=== PATIENT | female | born 1950 | race Caucasian/White ===

== ENCOUNTER 2025-09-05 17:35 | Inpatient (IN) ==
--- NOTE | 2025-09-05 17:59 | Emergency Department Note ---
History of Present Illness General Chief complaint: Hip Pain Stated complaint: FALL, R LEG PAIN Time Seen by Provider: 09/05/25 17:46 Source: patient and family Mode of arrival: EMS Limitations: physical limitation History of Present Illness Maximum Pain Intensity: 8 Patient is a 74-year-old female with history of dementia who presents after a ground-level fall today. History is mainly from her . She fell after tripping on a rug. Landed on her right side. No head or neck injury. Unable to bear weight after the fall. Complains of right hip pain. No obvious deformity noted. History is limited secondary to patient's dementia. Home Medications Medication Instructions Recorded Confirmed Type donepezil 10 mg tablet 10 mg PO QAM 09/05/25 09/05/25 History Past Med/Surg History Problem List (Updated 09/05/25 @ 21:01 by Maxim Betancourt MD) Hip Injury (Acute) Social History Smoking Status: Never smoker Preferred Language: [place] Feels Safe at Home: Yes Review of Systems Review of systems negative outside of positive findings mentioned in HPI. Physical Exam Vital Signs Vital Signs - 24 hr 09/05/25 17:45 09/05/25 18:13 09/05/25 18:58 Temperature 36.5 C Temperature Source Oral Pulse Rate 76 63 68 Respiratory Rate 18 23 Respiratory Effort / Characteristics Non-Labored Spontaneous Respiratory Depth Normal Respiratory Pattern Regular Blood Pressure 206/89 H 169/83 H Blood Pressure Mean 128 135 Pulse Oximetry 98 100 Oxygen Delivery Method Room Air Sepsis Recent Fever Within 48 Hours No Sepsis New/Unexplained Change in Mental Status No Sepsis Action Taken by Nursing No Action Required See below Constitutional WD/WN, vitals as above Eyes PERRL, conjunctivae normal, anicteric sclerae ENMT external ear and nose normal, oropharynx normal Respiratory normal respiratory effort, lungs clear to auscultation Cardiovascular RRR, no murmur, no edema Chest (Breasts) Chest: normal inspection of chest Additional Comments: No tenderness to palpation to the ribs or sternum Gastrointestinal (Abdomen) normal bowel sounds, soft, nontender, no hepatosplenomegaly Musculoskeletal tenderness to palpation on the right anterior hip joint, positive logroll test on the right, limited active flexion against gravity secondary to pain, normal examination of the right knee joint, flexion limited secondary to pain, 2+ PT pulses on the right, pelvis is stable Skin no rashes, warm and dry Neurologic Ankle dorsiflexion and plantarflexion is intact, no sensation deficits noted in the lumbosacral distribution of the right lower extremity Medical Decision Making Differential Diagnosis DDx includes but not limited to: Pelvic fracture, femoral neck fracture, hip dislocation, ligamentous injury, tendinopathy, knee injury Medical Records Attestation: I reviewed the patient's medical records. Home Medications Current Medication List: was personally reviewed by me Laboratory Data Attestation: I reviewed the patient's lab results. 09/05/25 18:12 09/05/25 18:12 Lab Results 09/05/25 09/05/25 Range/Units 18:12 19:58 WBC 13.98 H (4.8-10.8) K/ul RBC 4.63 (4.20-5.40) M/uL Hgb 13.3 (12.0-16.0) g/dL Hct 40.7 (37.0-47.0) % MCV 87.9 (80.0-100.0) fL MCH 28.7 (25.0-34.0) pg MCHC 32.7 (32.0-36.0) g/dL RDW Std Deviation 40.2 (36.4-46.3) fL RDW Coeff of Miguel Angel 12.5 (11.5-14.5) % Plt Count 219 (130-400) K/uL MPV 11.1 (9.4-12.4) fL Immature Gran % (Auto) 0.5 % Neut % (Auto) 86.4 % Lymph % (Auto) 7.0 % [place] % (Auto) 5.7 % Eos % (Auto) 0.1 % Baso % (Auto) 0.3 % Neut # (Auto) 12.07 H (1.40-6.50) K/uL Lymph # (Auto) 0.98 L (1.20-3.40) K/uL [place] # (Auto) 0.80 H (0.11-0.59) K/uL Eos # (Auto) 0.02 (0.00-0.50) K/uL Baso # (Auto) 0.04 (0.00-0.20) K/uL Immature Gran # (Auto) 0.07 (0.01-0.20) K/uL PT 10.6 (9.0-12.0) Seconds INR 1.0 (0.9-1.1) APTT 26 (21-31) Seconds PTT Ratio 1.0 Sodium 141 (136-145) mmol/L Potassium 4.1 (3.5-5.1) mmol/L Chloride 105 (98-107) mmol/L Carbon Dioxide 28 (21-32) mmol/L Anion Gap 8 (3-11) BUN 21 (6-23) mg/dl Creatinine 0.67 (0.6-1.2) mg/dl Est Cr Clr Drug Dosing 64.6 ml/min eGFR 92.23 BUN/Creatinine Ratio 31.3 H (10-20) Glucose 110 H (70-99(Fasting)) mg/dl Calcium 9.5 (8.6-10.3) mg/dl Total Bilirubin 0.5 (0.2-1.0) mg/dl AST 17 (13-39) U/L ALT 8 (7-52) U/L Alkaline Phosphatase 64 (34-104) U/L Total Protein 7.4 (6.0-8.3) gm/dl Albumin 4.0 (3.4-5.0) gm/dl Globulin 3.4 (2.5-4.0) gm/dl Albumin/Globulin Ratio 1.2 (0.9-2) Urine Color Yellow Urine Appearance Clear (Clear) Urine pH 8.0 H (4.5-7.5) Ur Specific [place] 1.011 (1.000-1.030) Urine Protein Negative (Negative) Urine Glucose (UA) Negative (Negative) Urine Ketones Negative (Negative) Urine Blood 3+ H (Negative) Urine Nitrite Negative (Negative) Urine Bilirubin Negative (Negative) Urine Urobilinogen Negative (Negative) Ur Leukocyte Esterase Trace H (Negative) Urine WBC (Auto) 0-5 (0-5) /hpf Urine RBC (Auto) >20 H (0-2) /hpf U Hyaline Cast (Auto) 0-2 (0-2) /lpf U Epithel Cells (Auto) 0-2 (0-2) /hpf Urine Bacteria (Auto) None Seen (None Seen) Urine Comment Imaging Data Attestation: I personally reviewed and interpreted this imaging study as follows: Radiologist's Impression: Hip X-Ray 09/05/25 17:53 INDICATION: Trauma TECHNIQUE: 2 views of the right hip were obtained. COMPARISON: None FINDINGS: No displaced acute osseous process is identified. Mild osteoarthritis of the right hip joint. IMPRESSION: No displaced acute osseous process is identified. Electronically signed by Shadi Cardenas 09-05-2025 7:28 PM Knee X-Ray 09/05/25 17:53 INDICATION: Pain TECHNIQUE: 3 views of the right knee were obtained. COMPARISON: None FINDINGS: No displaced acute osseous process is identified. 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 Mild genu valgum. No appreciable joint fluid is seen. IMPRESSION: No displaced acute osseous process is identified. Electronically signed by Shadi Cardenas 09-05-2025 7:[address] 09/05/25 18:40 CT PELVIS: TECHNIQUE: Un-enhanced CT examination of the pelvis was performed. IV CONTRAST: None HISTORY: TRAUMA COMPARISON: None. FINDINGS: URINARY BLADDER: Unremarkable REPRODUCTIVE ORGANS: Unremarkable AORTA and ILIAC ARTERIES: No aneurysmal dilatation of the visualized portion of the aorta or iliac arteries seen. LYMPH NODES: No pelvic lymph adenopathy identified. GASTROINTESTINAL: The visualized bowel is normal in caliber. PERITONEUM: No ascites is seen. No peritoneal masses seen. PELVIC WALL: No hernia is identified OSSEOUS STRUCTURES: No acute or suspicious process identified. IMPRESSION: No acute traumatic fracture is identified. Electronically signed by Shadi Cardenas 09-05-2025 7:28 PM ECG Data Attestation: I personally reviewed and interpreted this ECG as follows: Indication: + other (pre-op ) Rate (beats per minute): 61 Rhythm: + sinus rhythm ECG Intervals/blocks: + Normal QRS, + Normal QT and + Normal OR ECG [place]: + Normal ECG ST segments: + Normal ST segments Comparison ECG Date: no prior available Blood Pressure Blood Pressure Findings: Elevated blood pressure Blood Pressure Disposition: elevated BP felt to be situational MDM Narrative Patient is a 74-year-old female who presents after a fall with right hip pain. No obvious deformity noted. Neurovascular intact on my examination. X-ray of the right hip and knee Negative for negative for bony abnormality. Pelvis CT ordered to rule out occult fracture. No evidence of traumatic injury noted. Attempted to ambulate patient here in the ED however she is unable to ambulate without assistance or bear much weight on the right side. Will admit for PT/OT evaluation and further management of right hip pain after her fall. No head or neck injury reported. No other traumatic injury noted on secondary survey. Lab work reviewed. Mild leukocytosis noted. No obvious source of infection or SIRS criteria met. Could possibly be due to to some mild dehydration as patient's BUN to creatinine ratio was slightly elevated. Greater than 20 RBCs noted on urinalysis. Will need further workup and possible culture for further evaluation. No indication for antibiotics at this time. Will admit to hospitalist service for right hip pain and ambulatory dysfunction. Impression & Plan Hip Injury Discharge Plan Visit Data Chief Complaint: Hip Pain Stated Complaint: FALL, R LEG PAIN ED Provider: Maxim Betancourt Discharge Problem: Hip Injury Patient Disposition: Admitted As Inpatient Condition: Good Forms Stand Alone Forms: [employer] [facility] [place] Prescriptions Prescriptions: No Action donepezil 10 mg tablet 10 mg PO QAM Rx Instructions: with largest meal of the day Referrals Referrals: PCP,NO [Physician] -
[2025-09-05 18:50] LABS: Hematocrit (blood only) 40.7 % (37.0-47.0); Hemoglobin 13.3 g/dL (12.0-16.0); Immature Granulocytes # (auto) 0.07 K/uL (0.01-0.20); Immature Granulocytes % (auto) 0.5 %; Mean Corpuscular Hemoglobin 28.7 pg (25.0-34.0); Mean Corpuscular Volume 87.9 fL (80.0-100.0); Platelet Count 219 K/uL (130-400); RDW Standard Deviation 40.2 fL (36.4-46.3); Red Blood Count 4.63 M/uL (4.20-5.40); White Blood Count 13.98 K/ul (4.8-10.8)
[2025-09-05 19:11] LABS: Alanine Aminotransferase 8.0 U/L (7-52); Albumin Globulin Ratio 1.2 (0.9-2); Albumin Level 4.0 gm/dl (3.4-5.0); Alkaline Phosphatase 64.0 U/L (34-104); Anion Gap 8.0 (3-11); Bilirubin,Total 0.5 mg/dl (0.2-1.0); Blood Urea Nitrogen 21.0 mg/dl (6-23); Calcium 9.5 mg/dl (8.6-10.3); Carbon Dioxide 28.0 mmol/L (21-32); Chloride 105.0 mmol/L (98-107); Creatinine Clr Calc Pharmacy 64.6 ml/min; Globulin 3.4 gm/dl (2.5-4.0); Glucose 110.0 mg/dl (70-99(Fasting)); Potassium 4.1 mmol/L (3.5-5.1); Sodium 141.0 mmol/L (136-145); Total Protein 7.4 gm/dl (6.0-8.3)
[2025-09-05 19:22] LABS: INR 1.0 (0.9-1.1); Partial Thromboplastin Time 26 Seconds (21-31); Prothrombin Time 10.6 Seconds (9.0-12.0)
--- NOTE | 2025-09-05 19:28 | XRay Report ---
INDICATION: Trauma TECHNIQUE: 2 views of the right hip were obtained. COMPARISON: None FINDINGS: No displaced acute osseous process is identified. Mild osteoarthritis of the right hip joint. IMPRESSION: No displaced acute osseous process is identified. Electronically signed by Shadi Cardenas 09-05-2025 7:28 PM
--- NOTE | 2025-09-05 19:28 | CT Scan Report ---
CT PELVIS: TECHNIQUE: Un-enhanced CT examination of the pelvis was performed. IV CONTRAST: None HISTORY: TRAUMA COMPARISON: None. FINDINGS: URINARY BLADDER: Unremarkable REPRODUCTIVE ORGANS: Unremarkable AORTA and ILIAC ARTERIES: No aneurysmal dilatation of the visualized portion of the aorta or iliac arteries seen. LYMPH NODES: No pelvic lymph adenopathy identified. GASTROINTESTINAL: The visualized bowel is normal in caliber. PERITONEUM: No ascites is seen. No peritoneal masses seen. PELVIC WALL: No hernia is identified OSSEOUS STRUCTURES: No acute or suspicious process identified. IMPRESSION: No acute traumatic fracture is identified. Electronically signed by Shadi Cardenas 09-05-2025 7:28 PM
--- NOTE | 2025-09-05 19:28 | XRay Report ---
INDICATION: Pain TECHNIQUE: 3 views of the right knee were obtained. COMPARISON: None FINDINGS: No displaced acute osseous process is identified. 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 Mild genu valgum. No appreciable joint fluid is seen. IMPRESSION: No displaced acute osseous process is identified. Electronically signed by Shadi Cardenas 09-05-2025 7:28 PM
[2025-09-05 20:14] LABS: Appearance Urine Clear (Clear); Bacteria Urine Automated None Seen (None Seen); Cast Urine Automated 0-2 /lpf (0-2); Epithelial Cell Urine Auto 0-2 /hpf (0-2); Glucose Urine UA Negative (Negative); RBC Urine Automated >20 /hpf (0-2); WBC Urine Automated 0-5 /hpf (0-5)
[2025-09-05] MEDS: KETOROLAC TROMETHAMINE 15 MG/ML VIAL IV STA (22:45)
[2025-09-05] MEDS ORDERED: POLYETHYLENE (MIRALAX) 17 GM PACK PO PRN (23:38)
[2025-09-06] MEDS: LACTATED RINGER'S 1,000 ML IV SCH (00:16)
[2025-09-06] MEDS: ACETAMINOPHEN 1,000 MG/100 ML VIAL IV PRN (00:20)
--- NOTE | 2025-09-06 03:00 | History & Physical Report ---
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 Patient seems fell after tripping over a rug. Landed on her right side. Complained of right hip pain and unable to bear weight on the leg. Patient is currently alert and oriented x 2. Could not tell current dates and year. Patient does not remember falling down. Denies any chest pain. Denies any shortness of breath. Denies cough. Denies headache. Denies nausea. Denies abdominal pain. Able to talk to her and daughter. As per she does not use any cane or walker. Appetite is okay. Afebrile. Hemodynamics are okay. In the ER when tried to ambulate she could not put weight on the right leg and we were called for admission. Fall Ambulatory dysfunction Having pain in the right hip region Imaging studies no acute findings Pain control PT OT Mild Alzheimer's dementia On donezepil Will monitor for delirium History of hypertension and hyperlipidemia Currently not on medications as per PCP notes possibly due to weight loss Currently blood pressure running high IV hydralazine as needed Will monitor DVT prophylaxis Lovenox History of Present Illness Chief Complaint: Fall, ambulatory dysfunction Primary Care Provider: Danna Thompson MD 74-year-old female with past medical history significant for hyperlipidemia, hypertension, varicose veins of both lower extremities, 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 Patient seems fell after tripping over a rug. Landed on her right side. Complained of right hip pain and unable to bear weight on the leg. Patient is currently alert and oriented x 2. Could not tell current dates and year. Patient does not remember falling down. Denies any chest pain. Denies any shortness of breath. Denies cough. Denies headache. Denies nausea. Denies abdominal pain. Able to talk to her and daughter. As per she does not use any cane or walker. Appetite is okay. Afebrile. Hemodynamics are okay. In the ER when tried to ambulate she could not put weight on the right leg and we were called for admission. Past med history as mentioned above. Past surgical history. Total abdominal hysterectomy with removal of tubes. Social history. . No smoking. No alcohol use. No drug use. Family history. Father had diabetes. Allergies Allergy/AdvReac Type Severity Reaction Status Date / Time No Known Allergies Allergy Unverified 09/05/25 22:33 Home Medications Medication Instructions Recorded Confirmed Type donepezil 10 mg tablet 10 mg PO QAM 09/05/25 09/05/25 History Past Med/Surg History Problem List (Updated 09/06/25 @ 03:04 by Westley Nick MD) Fall Hip Injury (Acute) Social History Smoking Status: Never smoker Preferred Language: Dutch Communication Ability Comment: unable to assess due to cognative issues Security Investigator Required: No Current Living Situation: Spouse Current Living Situation Comment: unable to assess due to cognative issues Feels Safe at Home: Yes Assistive Devices: Walker Assistive Devices Comment: unable to assess due to cognative issues Review of Systems Review of Systems: Unobtainable due to cognitive status Physical Exam Physical Exam: General- Not in acute distress Head- atraumatic Eyes- PERRL. ENT- oropharynx clear Neck- supple, no JVD. Lungs- clear to auscultation no wheezing or crackles Heart- regular rhythm; no murmur, no gallop. Abdomen- normal bowel sounds, soft, nontender, no distension. Extremities- no pretibial edema, no erythema seen Neuro- alert, oriented x 2; PERRL, no facial palsy; no dysarthria; obeys simple commands, moves extremities Results & Data Results & Data Vital Signs (Past 12 Hours) Vital Signs Temp Pulse Resp BP Pulse Ox O2 Del Method 09/05/25 18:58 68 09/05/25 18:13 63 23 169/83 H 100 09/05/25 17:45 36.5 C 76 18 206/89 H 98 Room Air Diagnostic Findings Laboratory Results WBC 13.98 K/ul (4.8-10.8) H 09/05/25 18:12 RBC 4.63 M/uL (4.20-5.40) 09/05/25 18:12 Hgb 13.3 g/dL (12.0-16.0) 09/05/25 18:12 Hct 40.7 % (37.0-47.0) 09/05/25 18:12 MCV 87.9 fL (80.0-100.0) 09/05/25 18:12 MCH 28.7 pg (25.0-34.0) 09/05/25 18:12 MCHC 32.7 g/dL (32.0-36.0) 09/05/25 18:12 RDW Std Deviation 40.2 fL (36.4-46.3) 09/05/25 18:12 RDW Coeff of Miguel Angel 12.5 % (11.5-14.5) 09/05/25 18:12 Plt Count 219 K/uL (130-400) 09/05/25 18:12 MPV 11.1 fL (9.4-12.4) 09/05/25 18:12 Immature Gran % (Auto) 0.5 % 09/05/25 18:12 Neut % (Auto) 86.4 % 09/05/25 18:12 Lymph % (Auto) 7.0 % 09/05/25 18:12 [place] % (Auto) 5.7 % 09/05/25 18:12 Eos % (Auto) 0.1 % 09/05/25 18:12 Baso % (Auto) 0.3 % 09/05/25 18:12 Neut # (Auto) 12.07 K/uL (1.40-6.50) H 09/05/25 18:12 Lymph # (Auto) 0.98 K/uL (1.20-3.40) L 09/05/25 18:12 [place] # (Auto) 0.80 K/uL (0.11-0.59) H 09/05/25 18:12 Eos # (Auto) 0.02 K/uL (0.00-0.50) 09/05/25 18:12 Baso # (Auto) 0.04 K/uL (0.00-0.20) 09/05/25 18:12 Immature Gran # (Auto) 0.07 K/uL (0.01-0.20) 09/05/25 18:12 PT 10.6 Seconds (9.0-12.0) 09/05/25 18:12 INR 1.0 (0.9-1.1) 09/05/25 18:12 APTT 26 Seconds (21-31) 09/05/25 18:12 PTT Ratio 1.0 09/05/25 18:12 Sodium 141 mmol/L (136-145) 09/05/25 18:12 Potassium 4.1 mmol/L (3.5-5.1) 09/05/25 18:12 Chloride 105 mmol/L (98-107) 09/05/25 18:12 Carbon Dioxide 28 mmol/L (21-32) 09/05/25 18:12 Anion Gap 8 (3-11) 09/05/25 18:12 BUN 21 mg/dl (6-23) 09/05/25 18:12 Creatinine 0.67 mg/dl (0.6-1.2) 09/05/25 18:12 Est Cr Clr Drug Dosing 64.6 ml/min 09/05/25 18:12 eGFR 92.23 09/05/25 18:12 BUN/Creatinine Ratio 31.3 (10-20) H 09/05/25 18:12 Glucose 110 mg/dl (70-99(Fasting)) H 09/05/25 18:12 Calcium 9.5 mg/dl (8.6-10.3) 09/05/25 18:12 Total Bilirubin 0.5 mg/dl (0.2-1.0) 09/05/25 18:12 AST 17 U/L (13-39) 09/05/25 18:12 ALT 8 U/L (7-52) 09/05/25 18:12 Alkaline Phosphatase 64 U/L (34-104) 09/05/25 18:12 Total Protein 7.4 gm/dl (6.0-8.3) 09/05/25 18:12 Albumin 4.0 gm/dl (3.4-5.0) 09/05/25 18:12 Globulin 3.4 gm/dl (2.5-4.0) 09/05/25 18:12 Albumin/Globulin Ratio 1.2 (0.9-2) 09/05/25 18:12 Urine Color Yellow 09/05/25 19:58 Urine Appearance Clear (Clear) 09/05/25 19:58 Urine pH 8.0 (4.5-7.5) H 09/05/25 19:58 Ur Specific [place] 1.011 (1.000-1.030) 09/05/25 19:58 Urine Protein Negative (Negative) 09/05/25 19:58 Urine Glucose (UA) Negative (Negative) 09/05/25 19:58 Urine Ketones Negative (Negative) 09/05/25 19:58 Urine Blood 3+ (Negative) H 09/05/25 19:58 Urine Nitrite Negative (Negative) 09/05/25 19:58 Urine Bilirubin Negative (Negative) 09/05/25 19:58 Urine Urobilinogen Negative (Negative) 09/05/25 19:58 Ur Leukocyte Esterase Trace (Negative) H 09/05/25 19:58 Urine WBC (Auto) 0-5 /hpf (0-5) 09/05/25 19:58 Urine RBC (Auto) >20 /hpf (0-2) H 09/05/25 19:58 U Hyaline Cast (Auto) 0-2 /lpf (0-2) 09/05/25 19:58 U Epithel Cells (Auto) 0-2 /hpf (0-2) 09/05/25 19:58 Urine Bacteria (Auto) None Seen (None Seen) 09/05/25 19:58 Urine Comment 09/05/25 19:58 Impressions Hip X-Ray 09/05/25 17:53 INDICATION: Trauma TECHNIQUE: 2 views of the right hip were obtained. COMPARISON: None FINDINGS: No displaced acute osseous process is identified. Mild osteoarthritis of the right hip joint. IMPRESSION: No displaced acute osseous process is identified. Electronically signed by Shadi Cardenas 09-05-2025 7:28 PM Knee X-Ray 09/05/25 17:53 INDICATION: Pain TECHNIQUE: 3 views of the right knee were obtained. COMPARISON: None FINDINGS: No displaced acute osseous process is identified. 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 Mild genu valgum. No appreciable joint fluid is seen. IMPRESSION: No displaced acute osseous process is identified. Electronically signed by Shadi Cardenas 09-05-2025 7:[address] 09/05/25 18:40 CT PELVIS: TECHNIQUE: Un-enhanced CT examination of the pelvis was performed. IV CONTRAST: None HISTORY: TRAUMA COMPARISON: None. FINDINGS: URINARY BLADDER: Unremarkable REPRODUCTIVE ORGANS: Unremarkable AORTA and ILIAC ARTERIES: No aneurysmal dilatation of the visualized portion of the aorta or iliac arteries seen. LYMPH NODES: No pelvic lymph adenopathy identified. GASTROINTESTINAL: The visualized bowel is normal in caliber. PERITONEUM: No ascites is seen. No peritoneal masses seen. PELVIC WALL: No hernia is identified OSSEOUS STRUCTURES: No acute or suspicious process identified. IMPRESSION: No acute traumatic fracture is identified. Electronically signed by Shadi Cardenas 09-05-2025 7:28 PM ECG Additional Comments: ECG. Normal sinus rhythm at 61. QTc 434 Code Status & VTE Plan VTE Prophylaxis Plan VTE Prophylaxis will be ordered: Yes
[2025-09-06 07:05] LABS: Hematocrit (blood only) 38.8 % (37.0-47.0); Hemoglobin 12.8 g/dL (12.0-16.0); Immature Granulocytes # (auto) 0.04 K/uL (0.01-0.20); Immature Granulocytes % (auto) 0.3 %; Mean Corpuscular Hemoglobin 28.8 pg (25.0-34.0); Mean Corpuscular Volume 87.4 fL (80.0-100.0); Platelet Count 185 K/uL (130-400); RDW Standard Deviation 40.0 fL (36.4-46.3); Red Blood Count 4.44 M/uL (4.20-5.40); White Blood Count 11.85 K/ul (4.8-10.8)
[2025-09-06 07:27] LABS: Anion Gap 8.0 (3-11); Blood Urea Nitrogen 14.0 mg/dl (6-23); Calcium 9.0 mg/dl (8.6-10.3); Carbon Dioxide 30.0 mmol/L (21-32); Chloride 105.0 mmol/L (98-107); Creatinine Clr Calc Pharmacy 73.3 ml/min; Glucose 113.0 mg/dl (70-99(Fasting)); Magnesium 1.8 mg/dl (1.7-2.4); Potassium 3.4 mmol/L (3.5-5.1); Sodium 143.0 mmol/L (136-145)
[2025-09-06] MEDS: DONEPEZIL HCL 10 MG TAB PO SCH (08:55)
[2025-09-06] MEDS: ENOXAPARIN INJ 40 MG/0.4 ML SYR SQ SCH (08:56)
[2025-09-06] MEDS: POTASSIUM CHLORIDE CRTAB 20 MEQ TABCR PO STA (09:21)
--- NOTE | 2025-09-06 14:31 | Hospitalist Progress Note ---
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 Patient seems fell after tripping over a rug. Landed on her right side. Complained of right hip pain and unable to bear weight on the leg. Patient is currently alert and oriented x 2. Could not tell current dates and year. Patient does not remember falling down. Denies any chest pain. Denies any shortness of breath. Denies cough. Denies headache. Denies nausea. Denies abdominal pain. Able to talk to her and daughter. As per she does not use any cane or walker. Appetite is okay. Afebrile. Hemodynamics are okay. In the ER when tried to ambulate she could not put weight on the right leg and we were called for admission. Fall Ambulatory dysfunction Having pain in the right hip region Imaging studies no acute findings Complains nonspecific pain in multiple jointsclinically no acute arthritis involving any of the joint She does not have any other distress Will get PT OT evaluation and will likely need placement on discharge Mild Alzheimer's dementia On donezepil Will monitor for delirium No acute delirium and will try to avoid medications which can cause or potentiate delirium symptoms History of hypertension and hyperlipidemia Currently not on medications as per PCP notes possibly due to weight loss Currently blood pressure running high IV hydralazine as needed Will monitor DVT prophylaxis Lovenox CODE STATUS Full Discussed with the significant other Admission and Anticipated Discharge Date Admission Date: September 05, 2025 Subjective 09/06/2025 The patient was seen and examined in medical floor in presence of the She has dementia and was admitted with mechanical fall at home No fractures identified She will have PT OT evaluation and will likely need placement on discharge Review of Systems Review of Systems: All systems reviewed and are unremarkable except as noted below Physical Exam Physical Exam: Lying in bed without any acute distress Constitutional: well developed, well nourished and average body habitus; not ill appearing Eyes: PERRL, conjunctivae normal, anicteric sclerae ENMT: external ear and nose normal, oropharynx normal Neck: trachea midline, no thyromegaly Respiratory: no respiratory distress Auscultation: lungs clear to auscultation bilaterally Cardiovascular: Rate/Rhythm: regular rate and regular rhythm; not tachycardic Heart Sounds: normal S1 and normal S2; no murmur Extremities: no edema Gastrointestinal (Abdomen): Inspection/Auscultation: normal bowel sounds; abdomen not distended Percussion/Palpation: abdomen soft; abdomen nontender Musculoskeletal: No acute arthritis involving any of the joints Neurologic: normal touch/pain/proprioception, moves all extremities and + confused (Pleasantly confused with history of dementia); no focal motor deficits Lymphatic: no cervical or axillary lymphadenopathy Results & Data Results & Data Vital Signs (Past 12 Hours) Vital Signs Temp Pulse Resp BP Pulse Ox O2 Del Method 09/06/25 08:38 36.8 C 61 16 153/73 H 98 Room Air 09/06/25 04:09 62 146/89 H Laboratory Results Short CBC 09/05/25 09/06/25 Range/Units 18:12 06:25 WBC 13.98 H 11.85 H (4.8-10.8) K/ul Hgb 13.3 12.8 (12.0-16.0) g/dL Hct 40.7 38.8 (37.0-47.0) % Plt Count 219 185 (130-400) K/uL BMP 09/05/25 09/06/25 18:12 06:25 Sodium 141 143 Potassium 4.1 3.4 L Chloride 105 105 Carbon Dioxide 28 30 BUN 21 14 Creatinine 0.67 0.59 L Glucose 110 H 113 H Calcium 9.5 9.0 Liver Function 09/05/25 Range/Units 18:12 Total Bilirubin 0.5 (0.2-1.0) mg/dl AST 17 (13-39) U/L ALT 8 (7-52) U/L Alkaline Phosphatase 64 (34-104) U/L Albumin 4.0 (3.4-5.0) gm/dl Urine 09/05/25 Range/Units 19:58 Urine Color Yellow Urine Appearance Clear (Clear) Urine pH 8.0 H (4.5-7.5) Ur Specific [place] 1.011 (1.000-1.030) Urine Protein Negative (Negative) Urine Glucose (UA) Negative (Negative) Medications Administered Current Inpatient Medications Acetaminophen (Acetaminophen 325 Mg Tab) 650 mg PO Q4H PRN PRN Reason: pain/fever Stop: 10/05/25 23:37 Donepezil HCl (Donepezil Hcl 10 Mg Tab) 10 mg PO QAM [facility] Stop: 10/06/25 08:59 Last Admin: 09/06/25 08:55 Dose: 10 mg Enoxaparin Sodium (Enoxaparin Inj 40 Mg/0.4 Ml Syr) 40 mg SQ Q24H [facility] Stop: 10/06/25 08:59 Last Admin: 09/06/25 08:56 Dose: 40 mg Hydralazine HCl (Hydralazine Hcl 20 Mg/Ml Vial) 5 mg IV Q6H PRN PRN Reason: SBP > 170 Stop: 10/06/25 03:09 Acetaminophen (Ofirmev) 1,000 mg in 100 mls @ 400 mls/hr IV Q8H PRN PRN Reason: Pain or Fever Stop: 09/08/25 23:37 Last Infusion: 09/06/25 00:48 Dose: Infused Polyethylene Glycol (Polyethylene (Miralax) 17 Gm Pack) 17 gm PO DAILY PRN PRN Reason: Constipation Stop: 10/05/25 23:37 Tramadol HCl (Tramadol Hcl 50 Mg Tablet) 50 mg PO Q6H PRN PRN Reason: Severe Pain (Scale 7, 8, 9,10) Stop: 10/05/25 23:37
--- NOTE | 2025-09-06 20:00 | CT Scan Report ---
Technique: Axial computed tomography images were obtained of the brain without intravenous contrast. Findings: There is diffuse cerebral atrophy, within expected limits for the patient's age. Areas of decreased attenuation are seen within the periventricular white matter, likely representing chronic small vessel ischemic disease. There is no definite sign of acute or old infarction. No intracranial hemorrhage is evident. No definite mass lesion is seen on this noncontrast examination. There is no midline shift or other form of herniation. No hydrocephalus is seen. No fracture is identified. The orbits and the visualized paranasal sinuses appear unremarkable. The mastoid air cells appear clear. Impression: 1. Cerebral atrophy and chronic small vessel ischemic disease 2. Otherwise unremarkable noncontrast CT of the brain Electronically signed by Colton Montejo 09-06-2025 8:00 PM
[2025-09-06] MEDS: D5W AND 1/2NSS 1,000 ML IV SCH (21:04)
[2025-09-07 00:26] LABS: Appearance Urine Clear (Clear); Bacteria Urine Automated None Seen (None Seen); Cast Urine Automated 0-2 /lpf (0-2); Epithelial Cell Urine Auto 0-2 /hpf (0-2); Glucose Urine UA Negative (Negative); RBC Urine Automated >20 /hpf (0-2); WBC Urine Automated >50 /hpf (0-5)
[2025-09-07] MEDS: cefTRIAXone SODIUM 2,000 MG/50 ML BAG IV SCH (05:59)
[2025-09-07 07:11] LABS: Hematocrit (blood only) 43.9 % (37.0-47.0); Hemoglobin 14.3 g/dL (12.0-16.0); Immature Granulocytes # (auto) 0.05 K/uL (0.01-0.20); Immature Granulocytes % (auto) 0.4 %; Mean Corpuscular Hemoglobin 28.4 pg (25.0-34.0); Mean Corpuscular Volume 87.3 fL (80.0-100.0); Platelet Count 185 K/uL (130-400); RDW Standard Deviation 40.7 fL (36.4-46.3); Red Blood Count 5.03 M/uL (4.20-5.40); White Blood Count 13.49 K/ul (4.8-10.8)
[2025-09-07 07:48] LABS: Anion Gap 8.0 (3-11); Blood Urea Nitrogen 14.0 mg/dl (6-23); Calcium 8.9 mg/dl (8.6-10.3); Carbon Dioxide 30.0 mmol/L (21-32); Chloride 102.0 mmol/L (98-107); Creatinine Clr Calc Pharmacy 62.7 ml/min; Glucose 151.0 mg/dl (70-99(Fasting)); Potassium 3.6 mmol/L (3.5-5.1); Sodium 140.0 mmol/L (136-145)
[2025-09-07 07:57] LABS: Folate (Folic Acid),Ser orPlas 7.64 ng/ml (>5.38)
[2025-09-07 07:58] LABS: Vitamin B12 253.0 pg/ml (180-914)
[2025-09-07 08:02] LABS: Thyroid Stimulating Hormone 1.594 uIu/ml (0.300-4.500)
[2025-09-07] MEDS: GADOBUTROL 65ML VIAL IV ONE (12:44)
--- NOTE | 2025-09-07 13:23 | Magnetic Resonance Report ---
MRI OF THE BRAIN COMBO CLINICAL HISTORY: Lower extremity weakness. COMPARISON STUDY: CT of the brain dated 09/06/2025. TECHNIQUE: MRI of the brain was performed utilizing various T1 and T2-weighted sequences in the axial , sagittal, and coronal planes. Contrast-enhanced sequences were acquired following the administratio n of 6 cc of Gadavist. The examination is significantly degraded by motion artifact. FINDINGS: Brain parenchyma: There is age-related involutional change noting mild subcortical and periventricula r microangiopathic disease. There is no hemorrhage or mass effect. There is no restricted diffusion t o suggest acute ischemia. No enhancing mass lesion is identified on the postcontrast images. Mauro-whi te matter differentiation is preserved. No extra-axial fluid collection is seen. The cerebellar tonsi ls are normal in configuration. Ventricles, sulci, and cisterns: Prominent secondary to involutional change. Pituitary and sella: Unremarkable. Intracranial vasculature: Normal flow voids are maintained at the skull base. Orbits: The bony orbits are grossly intact. Orbital contents are normal in appearance. Sinuses and mastoids: Clear. Calvarium: Unremarkable. Cervical cord: Partially visualized cervical spinal cord is normal in morphology and signal intensity . IMPRESSION: No acute intracranial abnormality is identified noting a significantly motion degraded ex amination. ACT 112: Negative or not required by law. Electronically signed by: Zack Lombardi M.D. 09/07/2025 1:22 PM
--- NOTE | 2025-09-07 14:43 | Hospitalist Progress Note ---
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 Patient seems fell after tripping over a rug. Landed on her right side. Complained of right hip pain and unable to bear weight on the leg. Patient is currently alert and oriented x 2. Could not tell current dates and year. Patient does not remember falling down. Denies any chest pain. Denies any shortness of breath. Denies cough. Denies headache. Denies nausea. Denies abdominal pain. Able to talk to her and daughter. As per she does not use any cane or walker. Appetite is okay. Afebrile. Hemodynamics are okay. In the ER when tried to ambulate she could not put weight on the right leg and we were called for admission. Fall Ambulatory dysfunction Reports chronic right hip pain --Right hip x-ray:No displaced acute osseous process is identified. -- Right knee x-ray:No displaced acute osseous process is identified. -- Pelvic CT:No acute traumatic fracture is identified. --MRI brain: No acute intracranial abnormality is identified noting a significantly motion degraded examination. PT OT, fall precautions Needs SNF placement as able Suspected urinary tract infection Urine culture pending Empirically on IV Rocephin Continue gentle IV fluids Hypertension Previously on antihypertensives Started on low-dose amlodipine 2.5 mg daily Monitor and adjust medications as needed Mild Alzheimer's dementia On donezepil Reorient frequently to minimize delirium H/O Hyperlipidemia Currently not on medications DVT prophylaxis Lovenox SQ CODE STATUS Full Disposition SNF as able Admission and Anticipated Discharge Date Admission Date: September 05, 2025 Subjective Patient is seen and examined at bedside Sitting in chair during my encounter Admits to have generalized weakness and increased urinary frequency Denies any chest pain, dyspnea, abdominal pain, dysuria, hematuria Discussed with patient's family at bedside Review of Systems Review of Systems: All systems reviewed & are unremarkable except as noted in Subjective Physical Exam Physical Exam: Physical Exam: Vitals signs as noted above General Appearance:Moderately built and nourished, no apparent distress Head: normocephalic, Atraumatic Eyes: normal inspection, EOMI Neck: supple, Trachea midline Respiratory/Chest: Normal breath sounds, CTA, No accessory muscle use Cardiovascular: S1, S2, No murmur Abdomen/GI:Soft, Non tender, Bowel sounds present Extremities/Musculoskeletal:normal inspection, no edema Neurologic/Psych:AAOX2, grossly no focal neurological deficits, + Dementia Skin: normal color, warm Results & Data Results & Data Vital Signs (Past 12 Hours) Vital Signs Temp Pulse Pulse Resp BP Pulse Ox O2 Del Method 09/07/25 13:30 36.4 C L 92 H 16 134/86 96 Room Air 09/07/25 07:03 36.8 C 69 18 163/88 H 97 Room Air Laboratory Results Short CBC 09/07/25 Range/Units 06:44 WBC 13.49 H (4.8-10.8) K/ul Hgb 14.3 (12.0-16.0) g/dL Hct 43.9 (37.0-47.0) % Plt Count 185 (130-400) K/uL BMP 09/07/25 06:44 Sodium 140 Potassium 3.6 Chloride 102 Carbon Dioxide 30 BUN 14 Creatinine 0.69 Glucose 151 H Calcium 8.9 Urine 09/06/25 Range/Units 23:10 Urine Color Yellow Urine Appearance Clear (Clear) Urine pH 8.0 H (4.5-7.5) Ur Specific [place] 1.014 (1.000-1.030) Urine Protein 2+ H (Negative) Urine Glucose (UA) Negative (Negative)
[2025-09-08 06:54] LABS: Base Excess VBG 4.6 mEq/L; HCO3 VBG 28 mmol/L; Oxygen Saturation VBG 96.8 %; PCO2 VBG 38 mmHg (38-50); PO2 VBG 70 mmHg; pH VBG 7.48 (7.36-7.41)
[2025-09-08 06:59] LABS: Hematocrit (blood only) 39.5 % (37.0-47.0); Hemoglobin 13.0 g/dL (12.0-16.0); Mean Corpuscular Hemoglobin 28.6 pg (25.0-34.0); Mean Corpuscular Volume 86.8 fL (80.0-100.0); Platelet Count 161 K/uL (130-400); RDW Standard Deviation 40.7 fL (36.4-46.3); Red Blood Count 4.55 M/uL (4.20-5.40); White Blood Count 11.66 K/ul (4.8-10.8)
[2025-09-08 07:42] LABS: Anion Gap 8.0 (3-11); Blood Urea Nitrogen 17.0 mg/dl (6-23); Calcium 8.8 mg/dl (8.6-10.3); Carbon Dioxide 27.0 mmol/L (21-32); Chloride 105.0 mmol/L (98-107); Creatinine Clr Calc Pharmacy 77.3 ml/min; Glucose 134.0 mg/dl (70-99(Fasting)); Potassium 3.6 mmol/L (3.5-5.1); Sodium 140.0 mmol/L (136-145)
[2025-09-08 08:11] VITALS: BP 150/92; RESP 20; TEMP 99.7; O2SAT 95
[2025-09-08] MEDS: ACETAMINOPHEN 325 MG TAB PO PRN (09:39)
--- NOTE | 2025-09-08 11:58 | Hospitalist Progress Note ---
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 Patient seems fell after tripping over a rug. Landed on her right side. Complained of right hip pain and unable to bear weight on the leg. Patient is currently alert and oriented x 2. Could not tell current dates and year. Patient does not remember falling down. Denies any chest pain. Denies any shortness of breath. Denies cough. Denies headache. Denies nausea. Denies abdominal pain. Able to talk to her and daughter. As per she does not use any cane or walker. Appetite is okay. Afebrile. Hemodynamics are okay. In the ER when tried to ambulate she could not put weight on the right leg and we were called for admission. Fall Ambulatory dysfunction Reports chronic right hip pain --Right hip x-ray:No displaced acute osseous process is identified. -- Right knee x-ray:No displaced acute osseous process is identified. -- Pelvic CT:No acute traumatic fracture is identified. --MRI brain: No acute intracranial abnormality is identified noting a significantly motion degraded examination. PT OT, fall precautions Needs SNF placement as able Suspected urinary tract infection Urine culture: Noncontributory Empirically on IV Rocephin Day #2>> transition to oral antibiotics to complete the course Received IV fluids Hypertension Previously on antihypertensives Started on low-dose amlodipine 2.5 mg daily Monitor and adjust medications as needed Mild Alzheimer's dementia On donepezil Reorient frequently to minimize delirium Advised to follow-up with neurology as outpatient H/O Hyperlipidemia Currently not on medications DVT prophylaxis Lovenox SQ CODE STATUS Full Disposition SNF Admission and Anticipated Discharge Date Admission Date: September 05, 2025 Subjective Patient is seen and examined at bedside Doing much better today Discussed with patient's family at bedside No new complaints Weakness slowly improving Denies any chest pain, dyspnea, abdominal pain, dysuria, hematuria Plan to discharge to SNF today Review of Systems Review of Systems: All systems reviewed & are unremarkable except as noted in Subjective Physical Exam Physical Exam: Physical Exam: Vitals signs as noted above General Appearance:Moderately built and nourished, no apparent distress Head: normocephalic, Atraumatic Eyes: normal inspection, EOMI Neck: supple, Trachea midline Respiratory/Chest: Normal breath sounds, CTA, No accessory muscle use Cardiovascular: S1, S2, No murmur Abdomen/GI:Soft, Non tender, Bowel sounds present Extremities/Musculoskeletal:normal inspection, no edema Neurologic/Psych:AAOX2, grossly no focal neurological deficits, + Dementia Skin: normal color, warm Results & Data Results & Data Vital Signs (Past 12 Hours) Vital Signs Temp Pulse Resp BP Pulse Ox O2 Del Method 09/08/25 09:30 Room Air 09/08/25 08:10 37.6 C H 79 20 150/92 H 95 Room Air Laboratory Results Short CBC 09/08/25 Range/Units 06:41 WBC 11.66 H (4.8-10.8) K/ul Hgb 13.0 (12.0-16.0) g/dL Hct 39.5 (37.0-47.0) % Plt Count 161 (130-400) K/uL BMP 09/08/25 06:41 Sodium 140 Potassium 3.6 Chloride 105 Carbon Dioxide 27 BUN 17 Creatinine 0.56 L Glucose 134 H Calcium 8.8
--- NOTE | 2025-09-08 12:07 | Discharge Summary ---
Date of Service September 08, 2025 Admission HPI Per Admitting Provider 74-year-old female with past medical history significant for hyperlipidemia, hypertension, varicose veins of both lower extremities, 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 Patient seems fell after tripping over a rug. Landed on her right side. Complained of right hip pain and unable to bear weight on the leg. Patient is currently alert and oriented x 2. Could not tell current dates and year. Patient does not remember falling down. Denies any chest pain. Denies any shortness of breath. Denies cough. Denies headache. Denies nausea. Denies abdominal pain. Able to talk to her and daughter. As per she does not use any cane or walker. Appetite is okay. Afebrile. Hemodynamics are okay. In the ER when tried to ambulate she could not put weight on the right leg and we were called for admission. Past med history as mentioned above. Past surgical history. Total abdominal hysterectomy with removal of tubes. Social history. . No smoking. No alcohol use. No drug use. Family history. Father had diabetes. Admission Exam Per Admitting Provider General- Not in acute distress Head- atraumatic Eyes- PERRL. ENT- oropharynx clear Neck- supple, no JVD. Lungs- clear to auscultation no wheezing or crackles Heart- regular rhythm; no murmur, no gallop. Abdomen- normal bowel sounds, soft, nontender, no distension. Extremities- no pretibial edema, no erythema seen Neuro- alert, oriented x 2; PERRL, no facial palsy; no dysarthria; obeys simple commands, moves extremities Principal Diagnosis Fall Ambulatory dysfunction Urinary tract infection Hypertension Discharge Data Allergies Allergy/AdvReac Type Severity Reaction Status Date / Time No Known Allergies Allergy Unverified 09/05/25 22:33 Consultations 09/05/25 21:43 ED Decision to Admit Stat Procedures Performed Laboratory Results WBC 11.66 K/ul (4.8-10.8) H 09/08/25 06:41 RBC 4.55 M/uL (4.20-5.40) 09/08/25 06:41 Hgb 13.0 g/dL (12.0-16.0) 09/08/25 06:41 Hct 39.5 % (37.0-47.0) 09/08/25 06:41 MCV 86.8 fL (80.0-100.0) 09/08/25 06:41 MCH 28.6 pg (25.0-34.0) 09/08/25 06:41 MCHC 32.9 g/dL (32.0-36.0) 09/08/25 06:41 RDW Std Deviation 40.7 fL (36.4-46.3) 09/08/25 06:41 RDW Coeff of Miguel Angel 12.9 % (11.5-14.5) 09/08/25 06:41 Plt Count 161 K/uL (130-400) 09/08/25 06:41 MPV 10.8 fL (9.4-12.4) 09/08/25 06:41 Immature Gran % (Auto) 0.4 % 09/07/25 06:44 Neut % (Auto) 83.4 % 09/07/25 06:44 Lymph % (Auto) 7.4 % 09/07/25 06:44 [place] % (Auto) 8.2 % 09/07/25 06:44 Eos % (Auto) 0.3 % 09/07/25 06:44 Baso % (Auto) 0.3 % 09/07/25 06:44 Neut # (Auto) 11.26 K/uL (1.40-6.50) H 09/07/25 06:44 Lymph # (Auto) 1.00 K/uL (1.20-3.40) L 09/07/25 06:44 [place] # (Auto) 1.10 K/uL (0.11-0.59) H 09/07/25 06:44 Eos # (Auto) 0.04 K/uL (0.00-0.50) 09/07/25 06:44 Baso # (Auto) 0.04 K/uL (0.00-0.20) 09/07/25 06:44 Immature Gran # (Auto) 0.05 K/uL (0.01-0.20) 09/07/25 06:44 PT 10.6 Seconds (9.0-12.0) 09/05/25 18:12 INR 1.0 (0.9-1.1) 09/05/25 18:12 APTT 26 Seconds (21-31) 09/05/25 18:12 PTT Ratio 1.0 09/05/25 18:12 VBG pH 7.48 (7.36-7.41) H 09/08/25 06:41 VBG pCO2 38 mmHg (38-50) 09/08/25 06:41 VBG pO2 70 mmHg 09/08/25 06:41 VBG HCO3 28 mmol/L 09/08/25 06:41 VBG O2 Saturation 96.8 % 09/08/25 06:41 VBG Base Excess 4.6 mEq/L 09/08/25 06:41 Sodium 140 mmol/L (136-145) 09/08/25 06:41 Potassium 3.6 mmol/L (3.5-5.1) 09/08/25 06:41 Chloride 105 mmol/L (98-107) 09/08/25 06:41 Carbon Dioxide 27 mmol/L (21-32) 09/08/25 06:41 Anion Gap 8 (3-11) 09/08/25 06:41 BUN 17 mg/dl (6-23) 09/08/25 06:41 Creatinine 0.56 mg/dl (0.6-1.2) L 09/08/25 06:41 Est Cr Clr Drug Dosing 77.3 ml/min 09/08/25 06:41 eGFR 96.31 09/08/25 06:41 BUN/Creatinine Ratio 30.4 (10-20) H 09/08/25 06:41 Glucose 134 mg/dl (70-99(Fasting)) H 09/08/25 06:41 Calcium 8.8 mg/dl (8.6-10.3) 09/08/25 06:41 Phosphorus 3.1 mg/dl (2.5-4.9) 09/08/25 06:41 Magnesium 1.8 mg/dl (1.7-2.4) 09/06/25 06:25 Total Bilirubin 0.5 mg/dl (0.2-1.0) 09/05/25 18:12 AST 17 U/L (13-39) 09/05/25 18:12 ALT 8 U/L (7-52) 09/05/25 18:12 Alkaline Phosphatase 64 U/L (34-104) 09/05/25 18:12 Ammonia 38.0 umol/L (18-72) 09/08/25 06:41 Total Protein 7.4 gm/dl (6.0-8.3) 09/05/25 18:12 Albumin 4.0 gm/dl (3.4-5.0) 09/05/25 18:12 Globulin 3.4 gm/dl (2.5-4.0) 09/05/25 18:12 Albumin/Globulin Ratio 1.2 (0.9-2) 09/05/25 18:12 Vitamin B12 253 pg/ml (180-914) 09/07/25 06:44 Folate 7.64 ng/ml (>5.38) 09/07/25 06:44 TSH 1.594 uIu/ml (0.300-4.500) 09/07/25 06:44 Urine Color Yellow 09/06/25 23:10 Urine Appearance Clear (Clear) 09/06/25 23:10 Urine pH 8.0 (4.5-7.5) H 09/06/25 23:10 Ur Specific [place] 1.014 (1.000-1.030) 09/06/25 23:10 Urine Protein 2+ (Negative) H 09/06/25 23:10 Urine Glucose (UA) Negative (Negative) 09/06/25 23:10 Urine Ketones 1+ (Negative) H 09/06/25 23:10 Urine Blood 3+ (Negative) H 09/06/25 23:10 Urine Nitrite Negative (Negative) 09/06/25 23:10 Urine Bilirubin Negative (Negative) 09/06/25 23:10 Urine Urobilinogen Negative (Negative) 09/06/25 23:10 Ur Leukocyte Esterase Trace (Negative) H 09/06/25 23:10 Urine WBC (Auto) >50 /hpf (0-5) H 09/06/25 23:10 Urine RBC (Auto) >20 /hpf (0-2) H 09/06/25 23:10 U Hyaline Cast (Auto) 0-2 /lpf (0-2) 09/06/25 23:10 U Epithel Cells (Auto) 0-2 /hpf (0-2) 09/06/25 23:10 Urine Bacteria (Auto) None Seen (None Seen) 09/06/25 23:10 Urine Comment 09/06/25 23:10 Impressions Hip X-Ray 09/05/25 17:53 INDICATION: Trauma TECHNIQUE: 2 views of the right hip were obtained. COMPARISON: None FINDINGS: No displaced acute osseous process is identified. Mild osteoarthritis of the right hip joint. IMPRESSION: No displaced acute osseous process is identified. Electronically signed by Shadi Cardenas 09-05-2025 7:28 PM Knee X-Ray 09/05/25 17:53 INDICATION: Pain TECHNIQUE: 3 views of the right knee were obtained. COMPARISON: None FINDINGS: No displaced acute osseous process is identified. 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 Mild genu valgum. No appreciable joint fluid is seen. IMPRESSION: No displaced acute osseous process is identified. Electronically signed by Shadi Cardenas 09-05-2025 7:[address] 09/05/25 18:40 CT PELVIS: TECHNIQUE: Un-enhanced CT examination of the pelvis was performed. IV CONTRAST: None HISTORY: TRAUMA COMPARISON: None. FINDINGS: URINARY BLADDER: Unremarkable REPRODUCTIVE ORGANS: Unremarkable AORTA and ILIAC ARTERIES: No aneurysmal dilatation of the visualized portion of the aorta or iliac arteries seen. LYMPH NODES: No pelvic lymph adenopathy identified. GASTROINTESTINAL: The visualized bowel is normal in caliber. PERITONEUM: No ascites is seen. No peritoneal masses seen. PELVIC WALL: No hernia is identified OSSEOUS STRUCTURES: No acute or suspicious process identified. IMPRESSION: No acute traumatic fracture is identified. Electronically signed by Shadi Cardenas 09-05-2025 7:[address] 09/06/25 17:52 Technique: Axial computed tomography images were obtained of the brain without intravenous contrast. Findings: There is diffuse cerebral atrophy, within expected limits for the patient's age. Areas of decreased attenuation are seen within the periventricular white matter, likely representing chronic small vessel ischemic disease. There is no definite sign of acute or old infarction. No intracranial hemorrhage is evident. No definite mass lesion is seen on this noncontrast examination. There is no midline shift or other form of herniation. No hydrocephalus is seen. No fracture is identified. The orbits and the visualized paranasal sinuses appear unremarkable. The mastoid air cells appear clear. Impression: 1. Cerebral atrophy and chronic small vessel ischemic disease 2. Otherwise unremarkable noncontrast CT of the brain Electronically signed by Colton Montejo 09-06-2025 8:00 PM Brain MRI 09/07/25 10:39 MRI OF THE BRAIN COMBO CLINICAL HISTORY: Lower extremity weakness. COMPARISON STUDY: CT of the brain dated 09/06/2025. TECHNIQUE: MRI of the brain was performed utilizing various T1 and T2-weighted sequences in the axial, sagittal, and coronal planes. Contrast-enhanced sequences were acquired following the administration of 6 cc of Gadavist. The examination is significantly degraded by motion artifact. FINDINGS: Brain parenchyma: There is age-related involutional change noting mild subcortical and periventricular microangiopathic disease. There is no hemorrhage or mass effect. There is no restricted diffusion to suggest acute ischemia. No enhancing mass lesion is identified on the postcontrast images. Mauro-white matter differentiation is preserved. No extra-axial fluid collection is seen. The cerebellar tonsils are normal in configuration. Ventricles, sulci, and cisterns: Prominent secondary to involutional change. Pituitary and sella: Unremarkable. Intracranial vasculature: Normal flow voids are maintained at the skull base. Orbits: The bony orbits are grossly intact. Orbital contents are normal in appearance. Sinuses and mastoids: Clear. Calvarium: Unremarkable. Cervical cord: Partially visualized cervical spinal cord is normal in morphology and signal intensity. IMPRESSION: No acute intracranial abnormality is identified noting a significantly motion degraded examination. ACT 112: Negative or not required by law. Electronically signed by: Zack Lombardi M.D. 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 Patient seems fell after tripping over a rug. Landed on her right side. Complained of right hip pain and unable to bear weight on the leg. Patient is currently alert and oriented x 2. Could not tell current dates and year. Patient does not remember falling down. Denies any chest pain. Denies any shortness of breath. Denies cough. Denies headache. Denies nausea. Denies abdominal pain. Able to talk to her and daughter. As per she does not use any cane or walker. Appetite is okay. Afebrile. Hemodynamics are okay. In the ER when tried to ambulate she could not put weight on the right leg and we were called for admission. Fall Ambulatory dysfunction Reports chronic right hip pain --Right hip x-ray:No displaced acute osseous process is identified. -- Right knee x-ray:No displaced acute osseous process is identified. -- Pelvic CT:No acute traumatic fracture is identified. --MRI brain: No acute intracranial abnormality is identified noting a significantly motion degraded examination. PT OT, fall precautions Needs SNF placement as able Suspected urinary tract infection Urine culture: Noncontributory Empirically on IV Rocephin Day #2>> transition to oral antibiotics to complete the course Received IV fluids Hypertension Previously on antihypertensives Started on low-dose amlodipine 2.5 mg daily Monitor and adjust medications as needed Mild Alzheimer's dementia On donepezil Reorient frequently to minimize delirium Advised to follow-up with neurology as outpatient H/O Hyperlipidemia Currently not on medications DVT prophylaxis Lovenox SQ CODE STATUS Full Disposition SNF Total Time Total Time Spent Total Time Spent (In Minutes): 46 minutes Discharge Plan Discharge Items Patient Disposition: Transfer Care Home Fac Reason For Visit: FALL, RIGHT HIP PAIN Discharge Diagnosis: Fall Ambulatory dysfunction Urinary tract infection Hypertension Condition on Discharge: Good Activity: Per Instructions section Exercise/Sports: Gradually increase as tolerated Non-emergency contact: Primary Care Provider Call non-emergency contact if: you have any medication questions, your symptoms worsen, your pain is concerning for you and you have a fever Follow-up/Referrals: Danna Thompson MD [Primary Care Provider] - Diet: Heart Healthy Addtl Attending Provider Instructions: --Follow-up with your primary care physician in 1 week -- Complete the antibiotic course cefdinir as prescribed (start taking from 09/09/2025) for 3 more days. -- Monitor your blood pressure regularly as advised and discussed with your primary care physician for further adjustment of medications as needed Seek immediate medical attention if your symptoms reoccur or worsen Please review medication list provided on discharge for any medication changes as instructed. Please call if you have any questions or problems. You can reach a [facility] hospitalist on duty at [facility] 24 hours a day by calling [phone] Pending Studies at Discharge: No Stand-Alone Forms: My [facility] Skilled Items Patient informed of condition?: Yes DNR: No Discharge Level of Care: Skilled Communicable Disease: No Discharge Prognosis: Stable Lines: None Urinary Catheter: No Medications and DC Order Prescriptions: New amlodipine 5 mg Tablet 2.5 mg PO QAM Qty: 30 0RF cefdinir 300 mg capsule 300 mg PO BID Qty: 6 0RF Continued donepezil 10 mg tablet 10 mg PO QAM Rx Instructions: with largest meal of the day Discharge Orders: Discharge Order (Routine); Ordered 09/08/25 Ordered By: Alcides Bullard Admission Data Admit Date/Time: 09/05/25 21:45 Attending Provider: Alcides Bullard Admit Provider: Westley Nick Primary Care Provider: Danna Thompson Other Providers: Westley Nick
[2025-09-08 13:12] VITALS: PULSE 92
--- NOTE | 2025-09-10 07:04 | Electrocardiogram Report ---
Test Reason : Blood Pressure : */* mmHG Vent. Rate : 61 BPM Atrial Rate : 61 BPM P-R Int : 192 ms QRS Dur : 92 ms QT Int : 432 ms P-R-T Axes : 49 -20 61 degrees QTcB Int : 434 ms Normal sinus rhythm Normal ECG No previous ECGs available Confirmed by Frederic Randolph ([id number]) on 09/10/2025 7:03:51 AM Referred By: REFERRED SELF Confirmed By: Frederic Randolph
== END 2025-09-08 16:46 | DRG 92 ==
LOC: ED 17:35 → SUATTDRO 21:45 → 3N 21:45